=== PATIENT | female | born 1960 | race Caucasian/White ===

== ENCOUNTER 2017-06-11 13:58 | Emergency (ER) | payer MEDICAID, OTHER ==
[2017-06-11] MEDS: KETOROLAC 60 MG INJ IM (15:18)
== END 2017-06-11 19:00 | disposition home or self-care (01) ==
LOC: FTE 13:58
DX: M25.561 Pain in right knee (principal); M25.562 Pain in left knee; R07.9 Chest pain, unspecified
CPT/HCPCS: 71045; 73562-50; 96372; 99284-25